=== PATIENT | male | born 2000 | race Caucasian/White ===

== ENCOUNTER 2018-06-18 16:30 | Emergency (ER) | payer OTHER, SELFPAY ==
[2018-06-18 16:35] VITALS: BP 124/81; PULSE 79; RESP 18; TEMP 36.6; O2SAT 100
--- NOTE | 2018-06-18 16:39 | ED.SKABFB ---
HPI - Skin/Abscess/Foreign Bdy <KALYANI Preciado - Last Filed: 06/18/18 22:35> General Chief complaint: Skin/Abscess/Foreign Body Stated complaint: BROKEN OUT ON FACE AND HANDS Time Seen by Provider: 06/18/18 16:34 Source: patient Mode of arrival: ambulatory Limitations: no limitations History of Present Illness HPI narrative: 17-year-old male here for complaint of having rash to his bilateral feet and hands for the last several days. He also reports that he had sore throat earlier in the week. He was seen at the walk-in clinic and treated for strep pharyngitis with amoxicillin. Afterwards the rash to his hands and feet presented and he was taken off amoxicillin due to concerned that the rash was side effect of the amoxicillin. He denies any fevers. He reports that he has had it to the rash to his hands and feet. Sore throat has resolved somewhat. He now also reports that around his not he has had a secondary rash that that now has yellowish crust. Positive p.o. intake. No other concerns or complaints at this time. complaint: rash Related Data Previous Rx's Medication Instructions Recorded mupirocin 1 applictn TOP TID 7 Days #15 gram 06/18/18 Allergies Allergy/AdvReac Type Severity Reaction Status Date / Time amoxicillin Allergy Intermediate Rash Verified 06/18/18 16:37 Review of Systems <KALYANI Preciado - Last Filed: 06/18/18 22:35> Constitutional Denies chills, Denies fever(s), Denies lethargy and Denies weakness Eyes Denies change in vision, Denies eye discharge, Denies irritation and Denies loss of vision ENT Ears, Nose, Mouth, and Throat: Denies change in voice, Denies neck pain and Denies sore throat Cardiovascular Denies chest pain, Denies irregular heart rhythm, Denies lightheadedness, Denies palpitations, Denies dyspnea, Denies dyspnea on exertion and Denies orthopnea Respiratory Denies cough, Denies dyspnea, Denies dyspnea on exertion and Denies wheezing Gastrointestinal Gastrointestinal: Denies abdominal pain, Denies change in bowel habits, Denies diarrhea, Denies nausea and Denies vomiting Genitourinary Denies hematuria, Denies flank pain, Denies urinary incontinence and Denies urinary urgency Musculoskeletal Denies neck pain Integumentary/Breasts Reports lesions and Reports rash Neurologic Denies confusion, Denies loss of vision and Denies weakness Psychiatric Denies anxiety, Denies confusion, Denies depression, Denies homicidal ideation and Denies suicidal ideation Endocrine Denies palpitations Hematologic/Lymphatic Denies easy bruising Allergic/Immunologic Denies wheezing Exam <KALYANI Preciado - Last Filed: 06/18/18 22:35> Initial Vital Signs Initial Vital Signs: Vital Signs Temperature 97.8 F 06/18/18 16:35 Pulse Rate 79 06/18/18 16:35 Respiratory Rate 18 06/18/18 16:35 Blood Pressure 124/81 H 06/18/18 16:35 Pulse Oximetry 100 06/18/18 16:35 Const General: cooperative and well developed Nutritional Appearance: well nourished Orientation: alert, awake, oriented x3 and not confused HENMT Mouth: oropharynx normal (White circular lesion to the left tonsil no erythema no exudate) and moist mucous membranes Eyes Conjunctivae: conjunctivae normal Sclera: sclerae normal Pupils: PERRL EOM: EOM intact bilaterally Resp Effort & Inspection: normal respiratory effort, able to speak in complete sentences, no respiratory distress and no use of accessory muscles Auscultation: clear to auscultation bilaterally, no rales, no rhonchi and no wheezes Cardio Rate: regular rate Rhythm: regular rhythm Heart Sounds: no click, no gallops, no murmurs and no rubs Skin Other: Macular papular vesicular rash to the bilateral feet and hands. Raised erythematous crusty lesions to the perioral area with yellowish crust. Neuro General: alert, oriented x3, gait normal and no focal motor deficits Speech: speech normal <Josh Palacios DO - Last Filed: 06/19/18 07:30> Initial Vital Signs Initial Vital Signs: Vital Signs Temperature 97.8 F 06/18/18 16:35 Pulse Rate 79 06/18/18 16:35 Respiratory Rate 18 06/18/18 16:35 Blood Pressure 124/81 H 06/18/18 16:35 Pulse Oximetry 100 06/18/18 16:35 Course <KALYANI Preciado - Last Filed: 06/18/18 22:35> Vital Signs - 8 hr 06/18/18 16:35 Temperature 97.8 F Pulse Rate 79 Respiratory Rate 18 Blood Pressure 124/81 H Pulse Oximetry 100 <Josh Palacios DO - Last Filed: 06/19/18 07:30> Vital Signs - 8 hr 06/18/18 16:35 Temperature 97.8 F Pulse Rate 79 Respiratory Rate 18 Blood Pressure 124/81 H Pulse Oximetry 100 MDM - Skin/Abscess/Foreign Bdy <KALYANI Preciado - Last Filed: 06/18/18 22:35> [facility] Narrative Medical decision making narrative: Signs noted presents as mqik-emoa-yrsfg disease most likely in the latter stages. Lesions to the face appear as impetigo most likely secondary to the hyiu-ipfz-uztdy disease lesions. He is prescribed mupirocin ointment to treat impetigo. Vhrm-fny-mucvzam Tylenol Motrin as needed for any discomfort. Plenty of fluids and rest. Follow up with primary care provider next week. Return emergency room for any worsening symptoms. Discharge Plan Departure Patient Disposition: Home, Self-Care Clinical Impression: Hand, foot and mouth disease, Impetigo Discharge Date/Time: 06/18/18 17:34 Interventions: ED Discharge Assessment Last Done: 06/18/18 17:33 Instructions: Hand, Foot, and Mouth Disease, DI for Impetigo Activity Restrictions/Additional Instructions: Signs and symptoms presents as nwzt-zvcu-xdkns disease. It is a viral disease and should resolve on its own. Plenty of rest and fluids. Use [id number]-[id number] Tylenol or Motrin as needed for any discomfort. Rash to mouth appears to be secondary infection where bacteria has taken advantage due to sores from the viral illness he. Here prescribed an antibiotic ointment called mupirocin use as directed. Follow up with her primary care provider next week. Return emergency room for any worsening symptoms. Prescriptions: New mupirocin 2 % ointment 1 applictn TOP TID 7 Days Qty: 15 RF: 0 Referrals: Radha Fierro PA-C [Primary Care Provider] - <Josh Palacios DO - Last Filed: 06/19/18 07:30> Cosign ED Attending Maileature Attestation: I was available for consultation during this patient's emergency department encounter
--- NOTE | 2018-06-18 17:22 | ED_ITS ---
HPI - Skin/Abscess/Foreign Bdy <KALYANI Preciado - Last Filed: 06/18/18 22:35> General Chief complaint: Skin/Abscess/Foreign Body Stated complaint: BROKEN OUT ON FACE AND HANDS Time Seen by Provider: 06/18/18 16:34 Source: patient Mode of arrival: ambulatory Limitations: no limitations History of Present Illness HPI narrative: 17-year-old male here for complaint of having rash to his bilateral feet and hands for the last several days. He also reports that he had sore throat earlier in the week. He was seen at the walk-in clinic and treated for strep pharyngitis with amoxicillin. Afterwards the rash to his hands and feet presented and he was taken off amoxicillin due to concerned that the rash was side effect of the amoxicillin. He denies any fevers. He reports that he has had it to the rash to his hands and feet. Sore throat has resolved somewhat. He now also reports that around his not he has had a secondary rash that that now has yellowish crust. Positive p.o. intake. No other concerns or complaints at this time. complaint: rash Related Data Previous Rx's Medication Instructions Recorded mupirocin 1 applictn TOP TID 7 Days #15 gram 06/18/18 Allergies Allergy/AdvReac Type Severity Reaction Status Date / Time amoxicillin Allergy Intermediate Rash Verified 06/18/18 16:37 Review of Systems <KALYANI Preciado - Last Filed: 06/18/18 22:35> Constitutional Denies chills, Denies fever(s), Denies lethargy and Denies weakness Eyes Denies change in vision, Denies eye discharge, Denies irritation and Denies loss of vision ENT Ears, Nose, Mouth, and Throat: Denies change in voice, Denies neck pain and Denies sore throat Cardiovascular Denies chest pain, Denies irregular heart rhythm, Denies lightheadedness, Denies palpitations, Denies dyspnea, Denies dyspnea on exertion and Denies orthopnea Respiratory Denies cough, Denies dyspnea, Denies dyspnea on exertion and Denies wheezing Gastrointestinal Gastrointestinal: Denies abdominal pain, Denies change in bowel habits, Denies diarrhea, Denies nausea and Denies vomiting Genitourinary Denies hematuria, Denies flank pain, Denies urinary incontinence and Denies urinary urgency Musculoskeletal Denies neck pain Integumentary/Breasts Reports lesions and Reports rash Neurologic Denies confusion, Denies loss of vision and Denies weakness Psychiatric Denies anxiety, Denies confusion, Denies depression, Denies homicidal ideation and Denies suicidal ideation Endocrine Denies palpitations Hematologic/Lymphatic Denies easy bruising Allergic/Immunologic Denies wheezing Exam <KALYANI Preciado - Last Filed: 06/18/18 22:35> Initial Vital Signs Initial Vital Signs: Vital Signs Temperature 97.8 F 06/18/18 16:35 Pulse Rate 79 06/18/18 16:35 Respiratory Rate 18 06/18/18 16:35 Blood Pressure 124/81 H 06/18/18 16:35 Pulse Oximetry 100 06/18/18 16:35 Const General: cooperative and well developed Nutritional Appearance: well nourished Orientation: alert, awake, oriented x3 and not confused HENMT Mouth: oropharynx normal (White circular lesion to the left tonsil no erythema no exudate) and moist mucous membranes Eyes Conjunctivae: conjunctivae normal Sclera: sclerae normal Pupils: PERRL EOM: EOM intact bilaterally Resp Effort & Inspection: normal respiratory effort, able to speak in complete sentences, no respiratory distress and no use of accessory muscles Auscultation: clear to auscultation bilaterally, no rales, no rhonchi and no wheezes Cardio Rate: regular rate Rhythm: regular rhythm Heart Sounds: no click, no gallops, no murmurs and no rubs Skin Other: Macular papular vesicular rash to the bilateral feet and hands. Raised erythematous crusty lesions to the perioral area with yellowish crust. Neuro General: alert, oriented x3, gait normal and no focal motor deficits Speech: speech normal <Josh Palacios DO - Last Filed: 06/19/18 07:30> Initial Vital Signs Initial Vital Signs: Vital Signs Temperature 97.8 F 06/18/18 16:35 Pulse Rate 79 06/18/18 16:35 Respiratory Rate 18 06/18/18 16:35 Blood Pressure 124/81 H 06/18/18 16:35 Pulse Oximetry 100 06/18/18 16:35 Course <KALYANI Preciado - Last Filed: 06/18/18 22:35> Vital Signs - 8 hr 06/18/18 16:35 Temperature 97.8 F Pulse Rate 79 Respiratory Rate 18 Blood Pressure 124/81 H Pulse Oximetry 100 <Josh Palacios DO - Last Filed: 06/19/18 07:30> Vital Signs - 8 hr 06/18/18 16:35 Temperature 97.8 F Pulse Rate 79 Respiratory Rate 18 Blood Pressure 124/81 H Pulse Oximetry 100 MDM - Skin/Abscess/Foreign Bdy <KALYANI Preciado - Last Filed: 06/18/18 22:35> [facility] Narrative Medical decision making narrative: Signs noted presents as gifi-fpnb-efgvq disease most likely in the latter stages. Lesions to the face appear as impetigo most likely secondary to the oqqt-nfcn-bdcqg disease lesions. He is prescribed mupirocin ointment to treat impetigo. Kbtd-[id number]-sjphtpv Tylenol Motrin as needed for any discomfort. Plenty of fluids and rest. Follow up with primary care provider next week. Return emergency room for any worsening symptoms. Discharge Plan Departure Patient Disposition: Home, Self-Care Clinical Impression: Hand, foot and mouth disease, Impetigo Discharge Date/Time: 06/18/18 17:34 Interventions: ED Discharge Assessment Last Done: 06/18/18 17:33 Instructions: Hand, Foot, and Mouth Disease, DI for Impetigo Activity Restrictions/Additional Instructions: Signs and symptoms presents as vvzo-goue-dostj disease. It is a viral disease and should resolve on its own. Plenty of rest and fluids. Use over-the- counter Tylenol or Motrin as needed for any discomfort. Rash to mouth appears to be secondary infection where bacteria has taken advantage due to sores from the viral illness he. Here prescribed an antibiotic ointment called mupirocin use as directed. Follow up with her primary care provider next week. Return emergency room for any worsening symptoms. Prescriptions: New mupirocin 2 % ointment 1 applictn TOP TID 7 Days Qty: 15 RF: 0 Referrals: Radha Fierro PA-C [Primary Care Provider] - <Josh Palacios DO - Last Filed: 06/19/18 07:30> Cosign ED Attending Maileature Attestation: I was available for consultation during this patient's emergency department encounter
== END 2018-06-18 17:34 | disposition home or self-care (01) ==
PROVIDERS: Emergency Provider Nurse Practitioner Family; Family Provider Physician Assistant; PCP Physician Assistant
DX: B08.4 Enteroviral vesicular stomatitis with exanthem (principal); L01.00 Impetigo, unspecified
CPT/HCPCS: 99282